=== PATIENT | female | born 1985 | race Caucasian/White ===

== ENCOUNTER 2016-05-19 18:01 | Emergency (ER) | payer OTHER ==
[2016-05-19] MEDS ORDERED: ONDANSETRON HCL/PF 4 MG/ 2ML VIAL IVP ONE (18:15)
[2016-05-19] MEDS ORDERED: HYOSCYAMINE SULFATE 0.125 MG TAB.SUBL SL ONE (18:15)
[2016-05-19] MEDS ORDERED: 0.9 % SODIUM CHLORIDE 1,000 ML IV ONE ×2 (18:15→18:18)
[2016-05-19] MEDS ORDERED: ONDANSETRON HCL/PF 4 MG/ 2ML VIAL ONE (18:18)
--- NOTE | 2016-05-19 19:00 | ED Physician Documentation ---
General Adult - HISTORIAN Historian: patient - HPI Stated Complaint: Upper Resp. Symptoms Chief Complaint: General Adult Additional Information: since Monday, diarrhea, n/v, nonprod. cough, abd. pain Onset: days ago (2) Timing: still present Severity: moderate Modifying Factors: none Context: spontaneous, flu going around workplace Quality: moderate Further Comments: no - ROS CONST: weakness EYES/ENT: nasal congestion, other (left ear pain) CVS/RESP: cough (nonprod) GI/: abdominal pain, nausea, diarrhea MS/SKIN/LYMPH: none NEURO/PSYCH: denies: headache, fainting, dizziness, tingling, numbness, difficulty walking, difficulty with speech, anxiety, depression - PAST HX Past History: other (back pain) Surgeries/Procedures: other (discectomies) Immunizations: referred to PCP Allergies/Adverse Reactions: Allergies Allergy/AdvReac Type Severity Reaction Status Date / Time fentanyl Allergy Intermediate Verified 05/19/16 18:07 acetaminophen [From Percocet] Allergy Verified 05/19/16 18:07 cephalexin monohydrate Allergy Rash Verified 05/19/16 18:07 [From Keflex] lorazepam [From Ativan] Allergy Verified 05/19/16 18:07 oxycodone HCl [From Percocet] Allergy Verified 05/19/16 18:07 Home Medications: Ambulatory Orders Medication Instructions Recorded NK [NK] 05/19/16 - SOCIAL HX Smoking History: non-smoker Alcohol Use: occasionally Drug Use: none - FAMILY HX Family History: No - VITAL SIGNS Vital Signs: Vital Signs Temp Pulse Resp BP Pulse Ox 99.4 F 108 H 32 H 120/68 98 05/19/16 18:01 05/19/16 18:01 05/19/16 18:01 05/19/16 18:01 05/19/16 18:01 - REVIEWED ASSESSMENTS Nursing Assessment Reviewed: Yes Vitals Reviewed: Yes Progress - Results/Orders Results/Orders: cbc, cmp, strep, flu a and b ordered - Progress Progress: pt. given 1 liter NS IV, 0.25 mg Hyoscyamine p.o., 8 mg Zofran ivp in ER Critical Care Note - Critical Care Note Total Time (mins): 0 ED Results Lab/Radiology - Lab Results Lab Results: stre and flu neg, cbc, cmp unremarkable - Radiology Radiology Impressions: cxr left shoulder x-ray neg - Orders Orders: ED Orders Category Date Time Status Place Saline Lock/IV Now Care 05/19/16 18:15 Active CHEST 2 VIEW [CHEST P.A.&LAT 2 VIEWS] [RAD] Stat Exams 05/19/16 Ordered SHOULDER 2 VIEWS OR MORE [RAD] Stat Exams 05/19/16 Ordered CBC/PLATELET/DIFF Routine Lab 05/19/16 18:25 Received CMP Routine Lab 05/19/16 18:25 Received GRP A STREP SCREEN Routine Lab 05/19/16 Ordered INFLUENZA A&B Routine Lab 05/19/16 18:18 Ordered 0.9 % Sodium Chloride [Normal Saline] 1,000 ml Med 05/19/16 18:18 Discontinued IV .STK-MED 0.9 % Sodium Chloride [Normal Saline] 1,000 ml Med 05/19/16 18:15 Active IV Q2H Hyoscyamine Sulfate [Oscimin Sl] Med 05/19/16 18:15 Discontinued 0.25 mg SL NOW ONE Ondansetron HCl/Pf [Zofran 4 mg/2 ml] Med 05/19/16 18:18 Discontinued 8 mg .ROUTE .STK-MED ONE Ondansetron HCl/Pf [Zofran 4 mg/2 ml] Med 05/19/16 18:15 Discontinued 8 mg IVP NOW ONE General Adult Physical Exam - PHYSICAL EXAM GENERAL APPEARANCE: moderate distress EENT: eye inspection normal, ENT inspection normal, pharynx normal NECK: normal inspection, thyroid normal, supple RESPIRATORY: no resp distress, breath sounds normal CVS: reg rate & rhythm, heart sounds normal ABDOMEN: soft, no organomegaly, normal bowel sounds, non-tender BACK: normal inspection, no CVA tenderness SKIN: warm/dry, normal color EXTREMITIES: non-tender, normal range of motion, no evidence of injury, no edema NEURO: oriented X3, CN's nml as tested, motor nml, sensation nml, mood/affect nml, cognition normal Discharge Clincal Impression: Bronchitis Home Medications: Ambulatory Orders NK [NK] 05/19/16 Comments: discharged with scripts for Bactrim DS 1 pill twice daily #20, Zofran 4 mg 1 pill 4x/day #10 as needed for n/v, Parafon Forte DSC 500 mg #15 1 pill 4x/day Condition: Stable Disposition: 01 HOME, SELF-CARE Decision to Admit: NO Decision Time: 19:35
[2016-05-19 19:14] LABS: BASOPHILS % 0.5 (0.0-1.5); EOSINOPHILS % 1.4 % (0.0-6.8); LYMPHOCYTES # 1.8 # k/uL (0.6-4.0); MEAN CORPUSCULAR HEMOGLOBIN 29.6 pg (28.0-34.0); MONOCYTES # 0.5 # k/uL (0.0-0.9); MONOCYTES % 6.4 % (0.0-11.0); eGFR (African) > 60; eGFR (Non-African) > 60
[2016-05-19] MEDS ORDERED: ORPHENADRINE CITRATE 60 MG/2ML IV ONE (19:27)
[2016-05-19] MEDS ORDERED: SULFAMETHOXAZOLE/TRIMETHOPRIM 1 EACH TABLET PO ONE (19:27)
[2016-05-19] MEDS ORDERED: KETOROLAC TROMETHAMINE 30 MG/1ML VIAL IVP ONE (19:27)
[2016-05-19 19:49] VITALS: BP 122/67
--- NOTE | 2016-05-20 07:57 | Diagnostic Imaging Report ---
[facility] [address] [facility].[address] [id number] Report Submission Date: May 19, 2016 7:01:00 PM DERMATOLOGY NURSE PRACTITIONER Patient Study Name: CONY RIOS Date: May 19, 2016 6:34:12 PM DERMATOLOGY NURSE PRACTITIONER Modality Type: CR Gender: F Description: CHEST : 81 Institution: [facility] Physician: FRANDY GARCÍA Chest 2 views History: Cough and shortness of breath Findings: The lungs are clear and well expanded. No pleural effusions are observed. Heart size and pulmonary vascularity are normal. Osseous structures are unremarkable. Impression: Normal chest. Electronically signed on May 19, 2016 7:01:00 PM DERMATOLOGY NURSE PRACTITIONER by: Abbe PAL
--- NOTE | 2016-05-20 07:57 | Diagnostic Imaging Report ---
[facility] [address] [facility] [address] [id number] Report Submission Date: May 19, 2016 7:01:45 PM EYE CLINIC MANAGER Patient Study Name: CONY RIOS Date: May 19, 2016 6:41:24 PM EYE CLINIC MANAGER Modality Type: CR Gender: F Description: SHOULDER : 81 Institution: [facility] Physician: FRANDY GARCÍA Left shoulder 3 views History: Pain after injury 2 months ago Findings: The left shoulder unremarkable without fracture, dislocation, arthropathy, or focal bone lesion. Electronically signed on May 19, 2016 7:01:45 PM EYE CLINIC MANAGER by: Abbe PAL
== END 2016-05-19 19:45 | disposition home or self-care (01) ==
LOC: ED 18:01
DX: J20.9 Acute bronchitis, unspecified (principal)
CPT/HCPCS: 71020; 73030; 80053; 85025; A9270; J1885; J2360; J2405; J7030; 87070; 87400; 87880; 96361; 96374; 96375; 99283; S1016

== ENCOUNTER 2018-06-24 21:14 | Emergency (ER) | payer MEDICAID, OTHER ==
[2018-06-24] MEDS ORDERED: KETOROLAC TROMETHAMINE 60 MG/2 ML VIAL IM ONE (21:24)
[2018-06-24] MEDS ORDERED: methylPREDNISolone SOD SUCC 125 MG/2 ML VIAL IM ONE (21:24)
--- NOTE | 2018-06-24 21:27 | ED Physician Documentation ---
General Adult - HISTORIAN Historian: patient - HPI Stated Complaint: right upper chest pain Chief Complaint: General Adult Additional Information: Patient presents to ED with a 12 hour history of right upper chest pain after getting hit in the chest with a datapower consultant wand last night. She rates her pain as sharp stabbing, 10/10. Onset: hours (12) Timing: still present, worse since - ROS CONST: no problems EYES/ENT: none CVS/RESP: none GI/: none MS/SKIN/LYMPH: none NEURO/PSYCH: denies: dizziness - PAST HX Past History: none Other History: none Surgeries/Procedures: none Allergies/Adverse Reactions: Allergies Allergy/AdvReac Type Severity Reaction Status Date / Time fentanyl Allergy Intermediate Verified 06/24/18 21:25 cephalexin monohydrate Allergy Rash Verified 06/24/18 21:25 [From Keflex] Home Medications: Ambulatory Orders Medication Instructions Recorded NK 05/19/16 - SOCIAL HX Smoking History: cigarettes, greater than 1 pack/day Alcohol Use: none Drug Use: marijuana - FAMILY HX Family History: No - VITAL SIGNS Vital Signs: Vital Signs Temp Pulse Resp BP Pulse Ox 122/67 05/19/16 19:47 - REVIEWED ASSESSMENTS Nursing Assessment Reviewed: Yes Vitals Reviewed: Yes ED Results Lab/Radiology - Orders Orders: ED Orders Category Date Time Status CHEST 2VIEW [RAD] Stat Exams 06/24/18 Ordered Ketorolac Tromethamine [Toradol] Med 06/24/18 21:24 Once 60 mg IM NOW ONE methylPREDNISolone SOD SUCC [Solu-MEDROL] Med 06/24/18 21:24 Once 125 mg IM NOW ONE General Adult Physical Exam - PHYSICAL EXAM GENERAL APPEARANCE: crying EENT: ANGE, other (conjuntivae injected) NECK: supple RESPIRATORY: no resp distress, chest non-tender, breath sounds normal. No: wheezes CVS: reg rate & rhythm, heart sounds normal ABDOMEN: soft, normal bowel sounds BACK: normal inspection, no CVA tenderness SKIN: warm/dry, normal color EXTREMITIES: non-tender, normal range of motion, no edema NEURO: oriented X3 Discharge Clincal Impression: Chest wall contusion Qualifiers: Encounter type: initial encounter Laterality: right Qualified Code(s): S20.211A - Contusion of right front wall of thorax, initial encounter Referrals: Primary Doctor,No [Primary Care Provider] - 2 Days Additional Instructions: 1. tylenol and/or ibuprofen as needed for pain 2. Apply ice to affected area as needed for comfort 3. Stay active. 4. Follow up with PCP within 1 week 5. Return to ER for new or worsening symptoms Condition: Stable Disposition: 01 HOME, SELF-CARE Decision to Admit: NO Date of Decison to Admit: 06/24/18 Decision Time: 21:31
[2018-06-24 23:05] VITALS: BP 113/69
--- NOTE | 2018-06-25 05:40 | Diagnostic Imaging Report ---
MAEVE COSTA [facility] [address] [facility] [address] [place] [address]. [id number] Report Submission Date: Jun 24, 2018 9:53:12 PM DEVELOPER ARCHITECT Patient Study Name: CONY RIOS Date: Jun 24, 2018 9:33:10 PM DEVELOPER ARCHITECT Modality Type: DX Gender: F Description: CHEST 2VIEW : 81 Institution: [facility] Physician: MAEVE COSTA Two view chest Clinical history: Chest pain Findings: The heart size is normal. The pulmonary vasculature is normal. No pleural effusion, pneumothorax or alveolar consolidation. Impression: No acute disease in the chest Electronically signed on Jun 24, 2018 9:53:12 PM DEVELOPER ARCHITECT by: Marin PAL
== END 2018-06-24 22:20 | disposition home or self-care (01) ==
LOC: ED 21:14
DX: S20.211A Contusion of right front wall of thorax, initial encounter (principal); W22.8XXA Striking against or struck by other objects, initial encounter; Y93.89 Activity, other specified; Y92.9 Unspecified place or not applicable
CPT/HCPCS: 71046; 96372; 99282; 99283; J1885; J2930